=== PATIENT | female | born 1995 | race Caucasian/White ===

== ENCOUNTER → 2018-01-29 12:44 | Outpatient (CLI) | payer OTHER, SELFPAY ==
--- NOTE | 2018-01-29 | DI.US.S_ITS ---
PROCEDURE: US OB >= 14 WEEKS FETUS INDICATIONS: ANATOMY SCAN OUTSIDE/PRIOR DATING DATA: Last menstrual period (LMP): September 03, 2017. LMP-based estimated date of delivery (JANICE): June 10, 2018. First dating scan (date and location): Present study. Estimated date of delivery (JANIEC) from first dating scan: June 12, 2018. TECHNIQUE: Real-time scanning was performed of the fetus, with image documentation and biometric measurements. Endovaginal scanning: No COMPARISON: [facility], OB COMPLETE LESS THAN 14 WKS, 11/30/2017, 16:36. FINDINGS: General: A single living intrauterine gestation is present. Presentation: Vertex. Placenta: Placental position is anterior, without previa. Amniotic fluid index: 16.9 cm, normal range is 5-24 cm. heart rate: 157 beats per minute. Maternal cervical canal: 3.9 cm long. Normal lower limit is 2.5 cm. biometrics: Biparietal diameter: 22 weeks Head circumference: 21 weeks 4 days Abdominal circumference: 20 weeks 5 days Femur length: 20 weeks 5 days Estimated gestational age from initial scan: 20 weeks 6 days Composite gestational age from present scan: 21 weeks 2 days Estimated weight and percentile: 380 g, 43% Measurement variability for biometric dating: +/- 7 days from 14 weeks to 15 weeks 6 days gestation, +/- 10 days from 16 weeks to 21 weeks 6 days gestation, +/- 2 weeks from 22 weeks to 27 weeks 6 days gestation, +/- 3 weeks for 28 weeks gestation or later. weight reference: 4500 g or EFW >90/95% is considered macrosomia or large for gestational age. EFW <10% is small for gestational age. EFW 5% or less is considered intra-uterine growth restriction. Anatomic survey: Neuro: Ventricles are non-dilated at less than 10 mm. Cisterna magna is normal at 3-11 mm. Cerebellum is normal in size and morphology. Nuchal skin fold: Normal at less than 6 mm between 14-21 weeks gestational age. Face: Nose and lips, facial profile are normal. Spine: Not well-seen. Heart: 4-chambered heart is present, with normal ventricular outflow tracts. Diaphragm: Diaphragm is intact. Stomach: Left-sided stomach is present. Kidneys: No hydronephrosis. Normal is less than 5 mm in 2nd trimester, less than 7 mm in 3rd trimester. Cord: 3-vessel cord has orthotopic insertion. Bladder: Normal in size. Extremities: All 4 extremities identified. IMPRESSION: 1. Normal interval growth. 2. spine not well visualized otherwise normal anatomic survey. Dictated by: Leandro Mendiola [facility] Interpreted: Gennaro Kinney MD on 01/29/2018 at 14:09 Approved by: Gennaro Kinney M.D. on 01/29/2018 at 15:43
== END ==
PROVIDERS: PCP Family Medicine; Visit Provider Family Medicine
DX: Z34.82 Encounter for supervision of other normal pregnancy, second trimester (principal); Z3A.22 22 weeks gestation of pregnancy
CPT/HCPCS: 76811

== ENCOUNTER → 2018-05-18 17:17 | Outpatient (REF) | payer OTHER, SELFPAY | LOC: LAB 17:17 | PROVIDERS: Visit Provider Family Medicine | DX: Z34.90 Encounter for supervision of normal pregnancy, unspecified, unspecified trimester (principal) | CPT/HCPCS: 87081 ==

== ENCOUNTER → 2018-06-04 13:37 | Outpatient (CLI) | payer OTHER, SELFPAY ==
--- NOTE | 2018-06-04 | DI.US.S_ITS ---
PROCEDURE: US OB LIMITED INDICATIONS: SIZE GREATER THAN DATES OUTSIDE/PRIOR DATING DATA: Last menstrual period (LMP): 09/03/17. LMP-based estimated date of delivery (JANICE): 06/10/18. First dating scan (date and location): 11/30/17. Estimated date of delivery (JANICE) from first dating scan: 06/12/18. TECHNIQUE: Real-time scanning was performed of the fetus, with image documentation. Endovaginal scanning: Not needed for this study COMPARISON: Two prior OB ultrasound for this .. FINDINGS: A single living intrauterine gestation is present. Presentation: Vertex. Placenta: Placental position is anterior, without previa. Amniotic fluid index: 12.4 cm, normal range is 5-24 cm. heart rate: 139 beats per minute. Estimated gestational age from initial scan: 38 weeks 6 days. biometry is internally consistent with a current estimated gestational age of 39 weeks 6 days, based on BPD, head circumference, abdominal circumference and femur length of 9.7 cm, 35.0 cm, 36.9 cm and 7.5 cm respectively. This was correlated with respective gestational age estimates of 39 weeks 6 days, 40 weeks 5 days, 40 weeks 6 days, and 38 weeks 1 day, respectively. IMPRESSION: Appropriate interval growth, with the current estimated weight of 4012 g, upper 92nd percentile, without evidence of polyhydramnios (current amniotic fluid index is 12.4 cm). Dictated by: Silvano Chapin M.D. on 06/04/2018 at 14:38 Approved by: Silvano Chapin M.D. on 06/04/2018 at 14:58
== END ==
PROVIDERS: PCP Family Medicine; Visit Provider Family Medicine
DX: O36.63X0 Maternal care for excessive fetal growth, third trimester, not applicable or unspecified (principal); Z3A.39 39 weeks gestation of pregnancy
CPT/HCPCS: 76815

== ENCOUNTER → 2018-06-12 03:07 | Outpatient (CLI) | payer OTHER, SELFPAY | END | disposition home or self-care (01) | PROVIDERS: PCP Family Medicine; Visit Provider Family Medicine | DX: Z34.03 Encounter for supervision of normal first pregnancy, third trimester (principal); Z3A.40 40 weeks gestation of pregnancy | CPT/HCPCS: 59025; G0378; G0379 ==

== ENCOUNTER 2018-06-12 16:20 | Inpatient (IN) | payer OTHER, SELFPAY ==
[2018-06-12 18:17] LABS: Add Manual Diff / Slide Review NO; Basophils Percent Auto 0.5 % (0-2); Eosinophils Percent Auto 0.5 % (2-4); Hematocrit 35.8 % (36-46); Hemoglobin 11.7 g/dL (12.0-16.0); Lymphocytes Percent Auto 15.8 % (25-40); Mean Corpuscular HGB Conc 32.8 % (30-36); Mean Corpuscular Hemoglobin 27.4 PG (26-34); Mean Corpuscular Volume 83.6 fL (80-100); Monocytes Percent Auto 4.6 % (3-14); Neutrophils Absolute Auto 11300 /uL (3000-5900); Neutrophils Percent Auto 78.6 % (50-75); Platelet Count 340 X10^3/uL (150-400); Red Blood Cell Count 4.28 X10^6/uL (4.0-5.2); Red Cell Distribution Width 13.9 % (11.6-14.8); White Blood Cell Count 14.4 X10^3/uL (4.5-11.0)
--- NOTE | 2018-06-12 19:53 | PM.OBPNLAB ---
Date/Time Date Patient Seen: 06/12/18 Time Patient Seen: 19:53 Pain Control Pain control: tolerating well Pelvic Exam Dilation (cm): 9 Effacement (%): 100 station: -1 Amniotic membrane status: Intact Contractions Date/Time contractions began: Contractions on admission: regular Monitor mode: External Contraction frequency (min): 3 Contraction duration (min): 60 Contraction intensity: Strong/Firm Status status: Category l Heart Rate Baseline: 140 Monitor Decelerations: Absent Monitor Variability: Moderate Assessment and Plan Assessment: active labor Plan: continuous present management
--- NOTE | 2018-06-12 23:13 | P.PCNOB_ITS ---
Delivery date: 06/12/18 Intrapartal events: None Induction method: none Delivery monitor: external FHT and external uterine Route of delivery: Laceration description: Vaginal - 1st Degree Delivery repair: chromic Estimated blood loss (mL): 300 Anesthesia type: Epidural Complications: none Narrative: Identifying data: 22 yo G1Po at 40 and 2 7 weeks estimated gestational age presents to Labor and delivery in active labor. was uncomplicated. GBS negative, Rh positive, a glucose tolerance test 120 Stage I lasted approximately 3 hr Patient started having uterine contractions at approximately 2:00 a.m. on the date of delivery. She presented to Labor and delivery at 3:00 a.m. and was having irregular uterine contractions and was not having cervical change. She was sent home and she went home but continued to have contractions that gradually progressed and became progressively stronger and more regular and she presented to Labor and delivery at approximately 5:24 p.m. on the date of delivery. She was 4 cm dilated, 100% effaced with a bulging bag of water and felt to be in active labor. She was admitted. She had intact bag of water. External tocometer was used showing contractions every 2-4 minutes., external heart monitor was used which showed a category 1 tracing with baseline heart rate in the 140s to 150s with moderate variability and accelerations but no decelerations. Artificial rupture membranes was done 1 hr and 2 min prior to delivery and resulted in clear fluid. Patient started pushing at 9:17 p.m. she had anterior lip which was reduced with pushing. She was felt to be complete at 8:20 p.m. Stage II lasted 1 hr and 2 min. Patient began pushing had very effective pushing uterine contractions however spaced out to every 2 to 4 min with occasional 5 min break. heart tracings and the 140s baseline with moderate variability and mild variable decelerations with pushing with quick recovery and continued moderate variability. Category 1 tracing. Mom was effectively able to to push the baby down and baby was able to sit on the perineum to lab for stretching. Baby was in in ZEFERINO presentation and the head was delivered and there was a tight nuchal cord which was clamped and cut on the perineum. The anterior shoulder was delivered without difficulty and then the posterior shoulder but there was a marginal compound presentation with the right hand. The baby was placed on mom' s abdomen and chest and was vigorous at delivery with Apgars of 8 at 1 min and 9 at 5 min. weight was 8 lb 11 oz. Baby had terminal meconium and continued to have meconium on the mom's abdomen shortly after . Baby urinated as well. Baby did have difficulty clearing secretions and was grunting and was therefore taken over to the warmer. Stage III lasted 6 min Normal spontaneous vaginal delivery of a large [id number] calcified placenta with a near central cord insertion with a three-vessel cord. There was 350 cc of blood loss. One bag of Pitocin was run in at delivery and 10 milliunits of Pitocin was given IM. There were no cervical tears there was a 1st degree vaginal tear and bilateral labial tears. These were repaired with 2 L in the 3 0 chromic in a running fashion. At the time this dictation mom is stable and baby stable but requiring supplemental oxygen for suspected TTN.
[2018-06-13] MEDS: IBUPROFEN 600 MG TABLET PO ×3 (05:10→23:39)
[2018-06-13 06:48] VITALS: BP 122/84
--- NOTE | 2018-06-13 13:35 | PM.OBPN.1 ---
Subjective - OB Interval history: Doing well without any complaints. No significant perineal pain. Bleeding is minimal. is going well she is not having significant nipple pain. She is passing gas. She is urinating normally. She is tolerating p.o. without difficulty. Patient comments: no complaints baby status: doing well feeding status: exclusively breast feeding Date Patient Seen: 06/13/18 Time Patient Seen: 13:36 Exam Vital Signs (past 8 hours): - 06/13/18 06:48 Blood Pressure 122/84 Narrative Exam Narrative: HEENT unremarkable Neck is supple Chest clear to auscultation Cor regular rate and rhythm Uterus firm and below the umbilicus and nontender Extremities show no edema DTRs are intact Objective Labs Result Diagrams: 06/12/18 17:50 Labs: Laboratory Results - last 24 hr 06/12/18 06/12/18 17:50 17:50 WBC 14.4 H RBC 4.28 Hgb 11.7 L Hct 35.8 L MCV 83.6 MCH 27.4 MCHC 32.8 RDW 13.9 Plt Count 340 Neut % (Auto) 78.6 H Lymph % (Auto) 15.8 L [place] % (Auto) 4.6 Eos % (Auto) 0.5 L Baso % (Auto) 0.5 Neut # (Auto) 45572 H Blood Type A Positive Antibody Screen Negative Assessment & Plan Plan day: 1 plan OB: routine care Comments: Likely home in a.m. Time Spent With Patient Total time spent is greater than 50% in coordination of care (as documented) at patient's floor/unit and/or counseling patient: less than 15 minutes
[2018-06-14] MEDS: IBUPROFEN 600 MG TABLET PO ×2 (05:12→10:59)
--- NOTE | 2018-06-14 08:39 | P.DS_ITS ---
History of Present Illness Chief complaint: eval of labor Discharge Providers Date of admission: 06/12/18 16:20 Primary care physician: Heide York MD Consults: 06/12/18 22:43 Consult to [facility] [employer] Operator Head Routine Comment: Discharge provider: Heide York MD Discharge Date: 06/14/18 Summary Discharge Diagnosis: Term gestation Status post normal spontaneous vaginal delivery Hospital Course: Patient admitted in spontaneous labor and delivered approximately 5 hr after admission. Uncomplicated delivery and uncomplicated course Discharged home in stable condition on Colace, vitamins and Motrin as needed Follow-up with me in 2 weeks Routine discharge instructions regarding pelvic rest, no heavy lifting, breast- feeding, sinus symptoms of infection Status at Discharge Cognitive/behavioral status at discharge: Normal Functional status at discharge: independent ambulation Overall status at discharge: patient is progressing back to baseline Time Spent with Patient Less than 30 minutes Exam Vital Signs (past 8 hours): Afebrile vital signs are stable Chest: Clear to auscultation Cor: Regular rate and rhythm Abdomen: Benign uterus is nontender and well below the umbilicus Extremities no edema DTRs are intact Objective Labs Result Diagrams: 06/12/18 17:50 Discharge Plan Discharge Plan Patient Disposition: Home Discharge Med Rec/Prescriptions Prescriptions: New ibuprofen 600 mg Tablet 600 mg PO Q6HR PRN (Reason: As Needed For Fever/Mild Pain) Qty: 60 RF: 0 Continue fluticasone [Flovent HFA] 12 GM HFA aerosol inhaler 1 puff INH BID Qty: 0 RF: 0 vit-iron fum-folic ac [Mynatal] 1 EACH capsule 1 cap PO QDAY Qty: 30 RF: 9 Follow up/Referrals: Heide York MD [Primary Care Provider] - 06/28/18 12:00 am Provider Discharge Instructions Diet: Diet as Tolerated Skin/Wound/Dressing Care Report to your healthcare provider any signs of infection, such as:: chills, fever, night sweats, increased pain and unusual drainage Discharge Data Primary Care Provider: Heide York Attending Provider: Heide York Admit Date/Time: 06/12/18 16:20
[2018-06-14 09:16] VITALS: BP 115/77; PULSE 88; RESP 16; TEMP 37.1
[2018-06-14] MEDS: TET,DIPH,PERTUSS(ACELL),VAC/PF 0.5 ML SYRINGE IM (10:01)
== END 2018-06-14 12:07 | disposition home or self-care (01) | DRG 807 ==
PROVIDERS: Admitting Provider Family Medicine; PCP Family Medicine; Visit Provider Family Medicine
DX: O69.81X0 Labor and delivery complicated by cord around neck, without compression, not applicable or unspecified (principal); Z37.0 Single live birth; Z3A.40 40 weeks gestation of pregnancy; O32.6XX0 Maternal care for compound presentation, not applicable or unspecified; O70.0 First degree perineal laceration during delivery
CPT/HCPCS: 36415; 59050; 85025; 86850; 86900; 86901; 90715; G0379

== ENCOUNTER → 2019-06-24 11:35 | Outpatient (CLI) | payer OTHER, SELFPAY ==
[2019-06-24 12:24] LABS: Hematocrit 39.9 % (36-46); Mean Corpuscular HGB Conc 35.2 % (30-36); Mean Corpuscular Hemoglobin 29.3 PG (26-34); Mean Corpuscular Volume 83.3 fL (80-100); Platelet Count 377 X10^3/uL (150-400); Red Blood Cell Count 4.79 X10^6/uL (4.0-5.2)
[2019-06-24 12:55] LABS: Follicle Stimulating Hormone 4.16 mIU/mL
[2019-06-24 13:10] LABS: Estradiol, Total 52.4 pg/mL
[2019-06-24 13:28] LABS: Alanine Aminotransferase 24 IU/L (9-52); Albumin 4.2 g/dL (3.5-5.0); Albumin Globulin Ratio 1.2 (1.0-2.8); Alkaline Phosphatase 72 U/L (38-126); Aspartate Aminotransferase 23 IU/L (14-36); BUN Creatinine Ratio 13.3 (6-22); Bilirubin Total 0.5 mg/dL (0.2-1.3); Blood Urea Nitrogen 8 mg/dL (7-17); Calcium 9.3 mg/dL (8.4-10.2); Carbon Dioxide 23 mmol/L (22-32); Chloride 106 mmol/L (98-107); Cholesterol 183 mg/dL (140-199); Estimated Glomerular Filt Rate > 60.0 mL/min (>60); Globulin 3.5 g/dL (1.7-4.1); Glucose 82 mg/dL (70-100); HDL Cholesterol 36 mg/dL (40-60); HEMOLYSIS < 15 (0-50); LDL Cholesterol Calculated 112 mg/dL (<100); Potassium 4.3 mmol/L (3.4-5.1); Sodium 139 mmol/L (137-145); Total Protein 7.7 g/dL (6.3-8.2); Triglycerides 177 mg/dL (35-150)
[2019-06-24 13:45] LABS: HCG Quantitative /Beta subunit < 2.39 mIU/mL; Prolactin 10.1 ng/mL (3.0-18.6)
[2019-06-24 14:50] LABS: TSH w/ Reflex to FT4 1.29 uIU/mL (0.47-4.68)
== END ==
PROVIDERS: PCP Nurse Practitioner Family; Visit Provider Nurse Practitioner Family
DX: Z00.00 Encounter for general adult medical examination without abnormal findings (principal); N92.6 Irregular menstruation, unspecified; Z13.6 Encounter for screening for cardiovascular disorders
CPT/HCPCS: 36415; 80053; 80061; 82670; 83001; 84146; 84443; 84702; 85027

== ENCOUNTER → 2019-07-18 08:50 | Outpatient (CLI) | payer OTHER, SELFPAY ==
--- NOTE | 2019-07-18 08:52 | DI.US.S_ITS ---
PROCEDURE: US PELVIC COMPLETE INDICATIONS: AMENORRHEA TECHNIQUE: Real-time scanning was performed of the pelvic organs, with image documentation. Additional endovaginal scanning was necessary due to incomplete visualization of the adnexal and endometrial structures by transabdominal scanning. COMPARISON: None. FINDINGS: Transabdominal scanning: Limited scanning through the kidneys shows no hydronephrosis. No pathologic free abdominal or pelvic fluid. Endovaginal scanning: Uterus: Uterus is normal in size at 9.3 x 4.3 x 5.5 cm. The endometrium measures 11.0 mm in combined thickness. Ovaries: Ovaries are normal size measuring 3 point by 1.9 x 1.7 cm on the right and 2.7 x 2.1 x 2.2 cm on the left. There are multiple, bilateral sub-5 mm follicular cyst. IMPRESSION: Sub-5 mm bilateral follicular cysts which can be associated with polycystic ovarian syndrome. Dictated by: Leandro JESUS Interpreted: Shawn Maya MD on 07/18/2019 at 9:44 Approved by: Shawn Maya M.D. on 07/18/2019 at 11:14
== END ==
PROVIDERS: PCP Nurse Practitioner Family; Visit Provider Nurse Practitioner Family
DX: N92.6 Irregular menstruation, unspecified (principal); N83.02 Follicular cyst of left ovary; N83.01 Follicular cyst of right ovary
CPT/HCPCS: 76830; 76856

== ENCOUNTER → 2020-07-10 10:13 | Outpatient (CLI) | payer OTHER, SELFPAY ==
--- NOTE | 2020-07-10 | DI.US.S_ITS ---
PROCEDURE: US OB >= 14 WEEKS FETUS INDICATIONS: ANATOMY OUTSIDE/PRIOR DATING DATA: First dating scan (date and location): 07/10/2020 . Estimated date of delivery (JANICE) from first dating scan: 11/25/2020 . TECHNIQUE: Real-time scanning was performed of the fetus, with image documentation and biometric measurements. Endovaginal scanning: No COMPARISON: [facility], , OB >= 14 WEEKS FETUS, 01/29/2018, 13:07. FINDINGS: General: A single living intrauterine gestation is present. Presentation: Breech. Placenta: Placental position is anterior , without previa. Amniotic fluid index: 17.2 cm, normal range is 5-24 cm. heart rate: 155 beats per minute. Maternal cervical canal: 3.3 cm long. Normal lower limit is 2.5 cm. biometrics: Biparietal diameter: 19 weeks 5 days Head circumference: 20 weeks 1 day Abdominal circumference: 21 weeks 0 days Femur length: 20 weeks 2 days Estimated gestational age from initial scan: not applicable. Composite gestational age from present scan: 20 weeks 2 days Estimated weight and percentile: 364 g Measurement variability for biometric dating: +/- 7 days from 14 weeks to 15 weeks 6 days gestation, +/- 10 days from 16 weeks to 21 weeks 6 days gestation, +/- 2 weeks from 22 weeks to 27 weeks 6 days gestation, +/- 3 weeks for 28 weeks gestation or later. weight reference: 4500 g or EFW >90/95% is considered macrosomia or large for gestational age. EFW <10% is small for gestational age. EFW 5% or less is considered intra-uterine growth restriction. Anatomic survey: Neuro: Ventricles are non-dilated at less than 10 mm. Cisterna magna is normal at 3-11 mm. Cerebellum is normal in size and morphology. Nuchal skin fold: Normal at less than 6 mm between 14-21 weeks gestational age. Face: Suboptimally visualized. Spine: No evidence for spina bifida. Heart: Suboptimally visualized. Diaphragm: Suboptimally visualized. Stomach: Left-sided stomach is present. Kidneys: No hydronephrosis. Normal is less than 5 mm in 2nd trimester, less than 7 mm in 3rd trimester. Cord: 3-vessel cord has orthotopic insertion. Bladder: Normal in size. Extremities: All 4 extremities identified. IMPRESSION: 1. Single living IUP with composite gestational age of 20 weeks 2 days corresponding to ultrasound JANICE of 11/25/2020. 2. heart, diaphragm and face suboptimally visualized; otherwise normal anatomy. Follow-up recommended. Dictated by: Leandro ACUNA Interpreted: Quinton Jimenez MD on 07/10/2020 at 11:51 Approved by: Quinton Jimenez M.D. on 07/10/2020 at 13:06
== END ==
PROVIDERS: PCP Family Medicine; Referring Provider Family Medicine; Visit Provider Family Medicine
DX: Z36.89 Encounter for other specified antenatal screening (principal); Z3A.20 20 weeks gestation of pregnancy
CPT/HCPCS: 76811

== ENCOUNTER → 2020-08-17 10:50 | Outpatient (CLI) | payer OTHER, SELFPAY ==
--- NOTE | 2020-08-17 | DI.US.S_ITS ---
PROCEDURE: US OB FOLLOW UP INDICATIONS: 20 WEEK ANATOMICAL SURVEY FOLLOW UP OUTSIDE/PRIOR DATING DATA: Last menstrual period (LMP): Not available. LMP-based estimated date of delivery (JANICE): Not available . First dating scan (date and location): 07/10/20 . Estimated date of delivery (JANICE) from first dating scan: 11/25/20 . TECHNIQUE: Real-time scanning was performed of the fetus, with image documentation and biometric measurements. Endovaginal scanning: Not needed COMPARISON: [facility], OB >= 14 WEEKS FETUS, 07/10/2020, 10:28. FINDINGS: General: A single living intrauterine gestation is present. Presentation: Breech. Placenta: Placental position is anterior , without previa. Amniotic fluid index: 19.7 cm, normal range is 5-24 cm. heart rate: 144 beats per minute. Maternal cervical canal: 3.4 cm long. Normal lower limit is 2.5 cm. biometrics: Estimated gestational age from initial scan: 25 weeks 5 days. Other: The earlier 07/10/20 anatomic survey had not well visualize the facial area, the ventricular outflow tracts and the area of the chest/diaphragm. The current examination allows visualization of the structures which appear normal. IMPRESSION: Normal examination, limited, completion of the anatomic survey. Dictated by: Silvano Chapin M.D. on 08/17/2020 at 14:36 Approved by: Silvano Chapin M.D. on 08/17/2020 at 14:39
== END ==
PROVIDERS: PCP Family Medicine; Referring Provider Family Medicine; Visit Provider Family Medicine
DX: Z36.2 Encounter for other antenatal screening follow-up (principal); Z3A.25 25 weeks gestation of pregnancy
CPT/HCPCS: 76816